=== PATIENT | female | born 2000 | race Caucasian/White ===

== ENCOUNTER 2022-07-05 06:15 | Inpatient (IN) | payer OTHER ==
[2022-07-05 07:47] VITALS: BMI 28.5
[2022-07-05] MEDS: DEXTROSE 5%-LACTATED RINGERS 1,000 ML IV SCH ×2 (08:00→12:59)
[2022-07-05] MEDS ORDERED: OXYTOCIN 30 UNITS in 0.9% NS 30 UNIT/500 ML INFUS.BAG IVPB SCH (08:45)
[2022-07-05 09:02] LABS: INR 1.04 (0.83-1.09); PROTHROMBIN TIME (PATIENT) 12.1 SEC (9.7-13.0)
[2022-07-05 09:04] LABS: BASO % 0.4 % (0-2.0); EOS % 0.4 % (0-4.5); HEMATOCRIT 36.2 % (32.4-45.2); HEMOGLOBIN 12.5 GM/dL (10.7-15.3); LYMPH % 17.3 % (8-40); MCH 31.5 pg (25.7-33.7); MCHC 34.6 g/dl (32.0-36.0); MEAN PLT VOLUME 9.9 fl (7.5-11.1); MONO % 9.9 % (3.8-10.2); PLATELET COUNT 165 10^3/uL (134-434); RBC 3.97 M/mm3 (3.60-5.2); RDW 13.4 % (11.6-15.6)
[2022-07-05 09:05] LABS: ACTIVATED PTT 26.2 SECONDS (25.2-36.5)
[2022-07-05 09:20] LABS: CALCIUM 8.3 mg/dL (8.5-10.1)
[2022-07-05 09:53] LABS: BLOOD UREA NITROGEN 7.5 mg/dL (7-18); CREATININE 0.6 mg/dL (0.55-1.3)
[2022-07-05] MEDS ORDERED: PROMETHAZINE HCL 25 MG/1 ML VIAL IVPB ONE (11:00)
[2022-07-05] MEDS ORDERED: BUTORPHANOL TARTRATE 2 MG/ML VIAL IVPB ONE (11:00)
[2022-07-05 11:54] LABS: HIV INTERPRETATION NEGATIVE (NEGATIVE)
[2022-07-05] MEDS ORDERED: FENTANYL/BUPIVACAINE/NS/PF - PCEA - 50 ML DISP.SYRIN EP ONE ×3 (13:10→19:38)
[2022-07-05] MEDS ORDERED: NALOXONE HCL 0.4 MG/ML VIAL IVPUSH PRN (13:24)
[2022-07-05] MEDS ORDERED: FENTANYL CITRATE/PF 50 MCG/ML VIAL ONE ×2 (13:27→16:05)
[2022-07-05] MEDS ORDERED: ELECTROLYTE-148 SOLN 1,000 ML IV ONE ×2 (13:30→14:15)
[2022-07-05] MEDS: FENTANYL/BUPIVACAINE/NS/PF - PCEA - 50 ML DISP.SYRIN EP SCH ×3 (13:40→19:30)
[2022-07-05] MEDS ORDERED: BUPIVACAINE HCL/PF 0.25% (2.5MG/ML) 10 ML VIAL ONE (16:05)
[2022-07-05] MEDS ORDERED: OXYTOCIN 20 UNITS in 0.9% NS 20 UNIT/1,000 ML INFUS.BAG IV ONE (19:55)
[2022-07-06] MEDS ORDERED: WITCH HAZEL 50% (TUCKS) 40 PAD/JAR PAD TP PRN (00:19)
[2022-07-06] MEDS ORDERED: oxyCODONE HCL 5 MG TABLET PO PRN (00:19)
[2022-07-06] MEDS ORDERED: BENZOCAINE 20% 57 GM BOTTLE TP PRN (00:19)
[2022-07-06] MEDS ORDERED: BISACODYL 10 MG SUPP.RECT RC PRN (00:19)
[2022-07-06] MEDS ORDERED: BENZOCAINE 28 GM HEMORRHOIDAL OINTMENT TP PRN (00:19)
[2022-07-06] MEDS ORDERED: METHYLERGONOVINE MALEATE 0.2 MG/1 ML AMP IM PRN (00:19)
[2022-07-06] MEDS ORDERED: OXYTOCIN 20 UNITS in 0.9% NS 20 UNIT/1,000 ML INFUS.BAG IV SCH (00:30)
[2022-07-06] MEDS ORDERED: IBUPROFEN 600 MG TABLET (FP) PO ONE (00:41)
[2022-07-06] MEDS: IBUPROFEN 600 MG TABLET (FP) PO PRN ×4 (00:45→17:11)
[2022-07-06 02:26] VITALS: RESP 18
[2022-07-06 07:27] LABS: HEMOGLOBIN 10.5 GM/dL (10.7-15.3); MCH 31.9 pg (25.7-33.7); MEAN CELL VOLUME 91.1 fl (80-96); MEAN PLT VOLUME 9.8 fl (7.5-11.1); PLATELET COUNT 133 10^3/uL (134-434); RBC 3.29 M/mm3 (3.60-5.2); RDW 13.8 % (11.6-15.6); WHITE BLOOD COUNT 23.4 K/mm3 (4.0-10.0)
[2022-07-06 09:45] LABS: ANISOCYTOSIS 0; MACROCYTOSIS 0
[2022-07-06] MEDS: PRENATAL VITAMINS W/ FOLIC ACID TABLET (FP) PO SCH (09:57)
[2022-07-06] MEDS: ACETAMINOPHEN 325 MG TABLET (FP) PO PRN ×2 (09:57→17:58)
[2022-07-06 22:12] VITALS: TEMP 98.7
[2022-07-07] MEDS ORDERED: MAG HYDROX/AL HYDROX/SIMETH 30 ML UNIT-DOSE CUP PO ONE (00:45)
[2022-07-07] MEDS: IBUPROFEN 600 MG TABLET (FP) PO PRN (07:03)
[2022-07-07 08:53] VITALS: BP 100/60; PULSE 90
[2022-07-07] MEDS: PRENATAL VITAMINS W/ FOLIC ACID TABLET (FP) PO SCH (09:24)
[2022-07-07] MEDS ORDERED: SENNOSIDES/DOCUSATE COMBO (SENNA PLUS) TABLET (UD) PO PRN (22:00)
== END 2022-07-07 12:15 | disposition home or self-care (01) | DRG 560 ==
LOC: JLDR 06:15 → J3W 07-06 02:09
PROVIDERS: ADMIT Obstetrics & Gynecology; ATTEND Obstetrics & Gynecology
PROC: 10E0XZZ Delivery of Products of Conception, External Approach (ICD-10-PCS; principal; 2022-07-05)
PROC: 10907ZC Drainage of Amniotic Fluid, Therapeutic from Products of Conception, Via Natural or Artificial Opening (ICD-10-PCS; 2022-07-05)
PROC: 3E033VJ Introduction of Other Hormone into Peripheral Vein, Percutaneous Approach (ICD-10-PCS; 2022-07-05)
DX: O48.0 Post-term pregnancy (principal); Z3A.40 40 weeks gestation of pregnancy; Z37.0 Single live birth
CPT/HCPCS: 36415; 59409; 80048; 85025; 85610; 85730; 86780; 86850; 86900; 86901; 87389; C9803-CS; U0003; U0005